=== PATIENT | female | born 1945 | race Caucasian/White ===

== ENCOUNTER 2018-11-08 18:09 | Emergency (ER) | payer OTHER ==
[~2018-11-08] VITALS: Ht 160 cm; Wt 63.5 kg
[2018-11-08 18:47] VITALS: BP_SYST 230; BP_DIAS 90; BP_DIAS 96
[2018-11-08] MEDS ORDERED: MORPHINE SULFATE IM STA (19:06)
--- NOTE | 2018-11-08 19:08 | ER.PDOC ---
General Chief Complaint: Extremities Stated Complaint: ANKLE PAIN Time seen by MD: 19:07 Source: patient Exam Limitations: no limitations History of Present Illness Initial Comments Right ankle pain Onset: just prior to arrival Where: home Severity: moderate Context: twist Modifying Factors: pain on movement Allergies: Coded Allergies: No Known Allergies (Unverified , 11/08/18) Past Medical History Medical History: hypertension Surgical History: cholecystectomy, hysterectomy LMP (females 10-50): hysterectomy Social History Smoking: quit greater than 1 year Alcohol Use: none Drug Use: none Review of Systems Constitutional: no symptoms reported EENTM: no symptoms reported Respiratory: no symptoms reported Cardiovascular: no symptoms reported Gastrointestinal: no symptoms reported Musculoskeletal: see HPI All Other Systems: Reviewed and Negative Physical Exam General Appearance: Alert, No Apparent Distress Foot: nml inspection, non-tender Ankle: tenderness (right ankle), swelling, ecchymosis Gait: limited by pain Neuro: sensation nml, motor nml Vascular: no vascular compromise Tendons: tendon function nml Leg/Knee/Thigh: uninjured above ankle Skin: warm/dry Head/ENT: nml inspection, pharynx nml Neck/Back: nml inspection, non-tender Resp/CVS: no resp distress Abdomen: non-tender, no organomegaly Results/Orders Results/Orders Orders - AMISHA RAMON MD Xr Ankle 3v Rt (11/08/18 18:46) Morphine Sulfate (Morphine Sulfate) (11/08/18 19:06) Morphine Sulfate (Morphine Sulfate) (11/08/18 19:09) Vital Signs Date Time Temp Pulse Resp B/P (MAP) Pulse Ox O2 Delivery O2 Flow Rate FiO2 11/08/18 18:47 97.9 58 16 230/90 (136) 96 Room Air 11/08/18 18:47 97.9 58 16 96 Room Air 11/08/18 18:47 97.9 58 16 Administered Medications Medications (Trade) Dose Ordered Sig/Tere Route PRN Reason Start Time Stop Time Status Last Admin Dose Admin Morphine Sulfate (Morphine Sulfate) 4 mg STAT STAT IM 11/08/18 19:06 11/08/18 19:07 DC 11/08/18 19:13 4 MG Progress Progress X rays right ankle: No acute osseous abnormality. 2. Soft tissue swelling about the lateral aspect of the ankle with apparent ankle joint effusion. Departure Time of Disposition: 19:38 Disposition: 01 HOME, SELF-CARE Impression: Primary Impression: Injury, ankle Condition: Stable Referrals: PCP,UNKNOWN (PCP) PRIMARY CARE PROVIDER Additional Instructions: Ice Ibuprofen Tramadol F/U with your PCP in 1 week Duration or Time Spent with Pa: 45 mins Problem Qualifiers Primary Impression: Injury, ankle Encounter type: initial encounter Laterality: right Qualified Codes: S99.911A - Unspecified injury of right ankle, initial encounter AMISHA RAMON MD Nov 08, 2018 19:08
[2018-11-08] MEDS ORDERED: MORPHINE SULFATE ONE (19:09)
--- NOTE | 2018-11-08 19:16 | DIREP ---
PROCEDURE:XRAY ANKLE MIN 3VWS-RT COMPARISON:None. INDICATIONS:FALL FINDINGS: BONES:No acute fracture. JOINTS:Ankle mortise is congruent. SOFT TISSUES:Soft tissue swelling about the lateral aspect of the ankle with apparent ankle joint effusion. OTHER:Minimal plantar and posterior calcaneal spurring CONCLUSION: 1. No acute osseous abnormality. 2. Soft tissue swelling about the lateral aspect of the ankle with apparent ankle joint effusion. Dictated by: Jam Rubalcava M.D. On 11/08/2018 at 07:12 PM
[2018-11-08] MEDS ORDERED: NITROSTAT SL PRN (20:00)
--- NOTE | 2018-11-08 20:15 | NUR ---
WALKING BOOT PATIENT PLACED IN WALKING BOOT, PMS INTACT PRIOR AND POST FITTING
[2018-11-08 20:20] VITALS: BP 174/76
== END 2018-11-08 20:21 | disposition home or self-care (01) ==
LOC: ER 18:09
DX: S90.01XA Contusion of right ankle, initial encounter (principal); I10 Essential (primary) hypertension; Z90.49 Acquired absence of other specified parts of digestive tract; Z87.891 Personal history of nicotine dependence; Z90.710 Acquired absence of both cervix and uterus; X50.1XXA Overexertion from prolonged static or awkward postures, initial encounter; Y93.89 Activity, other specified; Y92.098 Other place in other non-institutional residence as the place of occurrence of the external cause; Y99.8 Other external cause status
CPT/HCPCS: 73610; 96372; 99283; J2270